=== PATIENT | female | born 1985 | race Caucasian/White ===

== ENCOUNTER 2016-07-24 14:58 | Inpatient (IN) | payer OTHER ==
--- NOTE | ~2016-07-24 | PN ---
Unit #: [id number] #: [id number] Patient: SUZIE SARAH [id number] [facility] [address] [place] [address] [id number] MR#: [id number] NAME: SUZIE SARAH. ROOM: P206 Age: 30 Sex: F Admission Date: 07/24/2016 : 1985 Attending Physician: Manjinder Briceno M.D. Admitting Physician: Manjinder Briceno M.D. Primary Care Physician: Primary Care Physician Vita PARKERCE PROGRESS NOTES DATE 07/25/2016 DISCUSSION Ms. Montano is a 30-year-old female seen on 07/25/2016. Patient interviewed. Chart reviewed. Obtained information from nursing staff. Patient was compliant, cooperative. Mood sad, dysphoric, flat affect, guarded, withdrawn, isolative, guarded. Patient's complete review of system unremarkable. MENTAL STATUS EXAMINATION General appearance, patient dressed casually. Attention span, concentration fair. Oriented in place and person. Mood and affect sad, dysphoric. Speech monotone. Thought process concrete. Patient denied any thoughts of harming others but having passive suicidal ideation, guarded, isolative, seclusive. Recent and remote memory poor. Insight and judgement poor. DIAGNOSES Major depressive disorder, recurrent, severe. ASSESSMENT/PLAN Advised to continue with current medication and therapeutic protocol. Will monitor response to medication and make further adjustment of medication. Continue with current precautions for patient's safety. Dictated by... Karime Monroy/jaky TD: 07/27/2016 16:44 JOB #: [id number] Unit #: [id number] #: [id number] Patient: SUZIE SARAH [facility] PROGRESS NOTES Page 1 of 1 X Manjinder Briceno MD PROGRESS NOTE
--- NOTE | ~2016-07-24 | DS ---
Unit #: [id number] #: [id number] Patient: SUZIE SARAH [id number] [facility] [address] [place] [address] [id number] I MR#: [id number] NAME: SUZIE SARAH. ROOM: [facility] Age: 30 Sex: F Admission Date: 07/24/2016 : 1985 Discharge Date: 07/26/2016 Attending Physician: Manjinder Briceno M.D. Primary Care Physician: Primary Care Physician No DISCHARGE SUMMARY REASON FOR ADMISSION Suicidal ideation. DIAGNOSTIC STUDIES LABORATORY RESULTS: Unremarkable. HOSPITAL COURSE The patient was admitted to inpatient unit on 07/24/2016 and discharged on 07/26/2016. The patient was treated on the inpatient unit with chemical dependency group and behavior management. The patient responded well with the above modalities of treatment and treated with a combination of trazodone and Vistaril. The patient also was able to contract for safety. Subsequently, the patient was discharged with a plan to follow up in outpatient program. DISCHARGE MEDICATIONS Trazodone 50 mg at bedtime for sleep and Vistaril 25 mg t.i.d. for anxiety. DISCHARGE DIAGNOSES Psychiatric: 1. Major depressive disorder, recurrent, severe, F33.2. 2. Cocaine use disorder, severe, F14.20. Secondary diagnosis: Deferred. Medical diagnosis: Methicillin-resistant Staphylococcus aureus infection. Stressors: Psychosocial stressors. DISCHARGE INSTRUCTIONS The patient is to follow up in outpatient clinic as per psychosocial rehabilitation counselor. CONDITION ON DISCHARGE The patient was pleasant and cooperative. Denied any psychotic symptom or any suicidal ideation. PROGNOSIS Guarded. DIET AND ACTIVITY As tolerated. Dictated by... Unit #: [id number] #: [id number] Patient: SUZIE SARAH Karime MonroyC/meel TD: 07/26/2016 18:53 JOB #: [id number] DISCHARGE SUMMARY Page 1 of 1 X Manjinder Briceno MD X DISCHARGE SUMMARY
--- NOTE | ~2016-07-24 | HP ---
Unit #: [id number] #: [id number] Patient: CHARMAINE SARAH [id number] [place] [address] [id number] I MR#: [id number] NAME: CHARMAINE SARAH. ROOM: P206 Age: 30 Sex: F Admission Date: 07/24/2016 : 1985 Attending Physician: Manjinder Briceno M.D. Admitting Physician: Manjinder Briceno M.D. Primary Care Physician: Primary Care Physician No HISTORY AND PHYSICAL HISTORY OF PRESENT ILLNESS Charmaine is a 30 year old admitted to [address] [place] [address] because of her polysubstance abuse which includes alcohol and crack cocaine. PAST MEDICAL HISTORY 1. Long history of illicit substance abuse. 2. History of alcohol abuse. 3. Morbid obesity. PAST SURGICAL HISTORY 1. x1. 2. Surgical I and D of an abscess along her lower abdomen that was positive for MRSA sometime ago. ALLERGIES Penicillin, sulfa, Rocephin, vancomycin. SOCIAL HISTORY Smokes one pack per day. Drinks at least 12 pack on a daily basis. Admits to using crack cocaine regularly. FAMILY HISTORY Medically noncontributory. REVIEW OF SYSTEMS CONSTITUTIONAL: No fever or chills. HEENT: Denies any sore throat, ear pain or runny nose. CARDIOVASCULAR: Denies chest pain, irregular heart rhythm or palpitations. CHEST: Denies shortness of breath or cough. No hemoptysis. GASTROINTESTINAL: Denies nausea, vomiting, diarrhea or chronic constipation. ENDOCRINE: Denies history of increased thirst or urination. No recent significant weight loss or gain. GENITOURINARY: Denies dysuria, frequency, or hematuria. SKIN: Denies any rashes. HEMATOLOGIC: Denies history of increased bleeding or bruising. MUSCULOSKELETAL: Denies any hot, swollen joints. No generalized muscle pain. NEUROLOGIC: Denies problems with vision or speech. No frequent, severe headaches. No numbness, tingling or weakness in any extremities. Denies loss of bladder or bowel control. CURRENT MEDICATIONS Unit #: [id number] #: [id number] Patient: CHARMAINE SARAH 1. Vistaril 25 mg t.i.d. 2. Trazodone 75 mg q.h.s. 3. Milk of Magnesia p.r.n. 4. Maalox p.r.n. 5. Tylenol p.r.n. 6. Nicotine patch 14 mg q. day. 7. Effexor XR 75 mg q. day. PHYSICAL EXAMINATION GENERAL: Alert, morbidly obese. No apparent distress. VITAL SIGNS: Blood pressure 130/88, heart rate 80, respirations 16, and temperature 98.6. WEIGHT: 230. HEIGHT: 5 feet 5 inches. SKIN: Warm and dry without rash. She has a significant laceration along her left anterior wrist. The area is sutured. There is no increased redness, swelling, heat, or pus noted. She moves all fingers. Neurovascular intact. HEENT: Normocephalic. TMs not viewed. Oral and nasal passages clear. Conjunctivae clear. PERRLA. EOMs intact. NECK: Supple without lymphadenopathy or thyromegaly. HEART: Regular rate and rhythm without murmur. LUNGS: Clear. ABDOMEN: Soft, nontender. : Not done. EXTREMITIES: No evidence of cyanosis, clubbing or edema. Moves all without focal deficit. NEUROLOGICAL: Grossly within normal limits. Cranial Nerves: II: Visual patel are intact. III, IV AND : Extraocular movements are intact. Pupils are equal, round and reactive to light. V: Facial sensation is grossly normal. VII: Facial movements and expression are normal. VIII: Auditory acuity grossly intact. IX, X: Uvula is midline. Phonation is normal. XI: Patient shrugs shoulders and turns head normally. XII: Tongue protrudes in the midline. Sensory and Motor Function: Sensory and motor sensation is grossly normal. Motor: moves all extremities well. Coordination: Gait is normal. Deep Tendon Reflexes: Intact. IMPRESSION 1. Psychiatric admission. 2. Significant self-inflicted laceration to her left wrist sustained prior to this admission. RECOMMENDATIONS PSYCHIATRIC: Per psychiatrist. MEDICAL: 1. I see no contraindication to participate in this facility's activities. 2. Keep the laceration clean with soap and water. 3. Suture removal in 7 to 10 days. MEDICAL PROGNOSIS Good. MEDICAL CONDITION Stable. Unit #: [id number] #: [id number] Patient: CHARMAINE SARAH Sebastián Dictated by... Miriam Fallon P.A.-C. for Karime Myers/bzg TD: 07/25/2016 15:02 JOB #: [id number] HISTORY AND PHYSICAL Page 1 of 1 X Miriam Fallon X HISTORY AND PHYSICAL
--- NOTE | ~2016-07-24 | PA ---
Unit #: [id number] #: [id number] Patient: SUZIE SARAH [id number] [place] [address] [id number] MR#: [id number] NAME: SUZIE SARAH. ROOM: P206 Age: 30 Sex: F Admission Date: 07/24/2016 : 1985 Date of Assessment: 07/25/2016 Attending Physician: Manjinder Briceno M.D. Admitting Physician: Manjinder Briceno M.D. Primary Care Physician: Primary Care Physician No PSYCHIATRIC ASSESSMENT INFORMANTS The patient's reliability, fair; chart reliability, good. CHIEF COMPLAINT Suicidal ideation. HISTORY OF PRESENT ILLNESS Ms. Montano is a 30-year-old female, seen on with the above-mentioned complaint. The patient reported history of regular use of substances since age 18. The patient presented with suicide attempt by slitting her wrist. The patient's wound were closed with 5 stitches. The patient reported using crack cocaine and alcohol. The patient reported she was doing it to prove a point to the boyfriend. The patient is upset with her boyfriend. The patient reported having treatment since teen years for substance abuse, depression, self-injurious behavior. The patient reports that her brother blew his brains out at age 16. The patient reports that after that she has been started using drugs. The patient also reported that she was going to court on Saturday to regain custody of her [id number] daughter. The patient needing inpatient admission at this time for psychiatric stabilization. PAST PSYCHIATRIC HISTORY Remarkable for history of previous treatment in 2016 inpatient for drug problems. FAMILY HISTORY AND SOCIAL HISTORY The patient has a poor support system. No history of any abuse. Family psychiatric illness is remarkable for history of completed suicide in brother. MEDICAL HISTORY Remarkable for MRSA. Musculoskeletal; muscle strength and tone, no atrophy or abnormal movement. Gait normal. MEDICATION HISTORY None. ALLERGIES No known drug allergies. SUBSTANCE ABUSE HISTORY The patient reported tobacco, age of onset 14; alcohol, age of onset 15; crack cocaine, age of onset 18; opioid, age of onset 29; synthetic Unit #: [id number] #: [id number] Patient: SCHEIDENBERGER,SUZIE A substances, age of onset 29; history of blackout. No history of any IV drug abuse, HIV, hepatitis, or any withdrawal symptom. REVIEW OF SYSTEMS HEENT: Eyes, clear. Ears, nose, mouth, and throat; clear. CARDIOVASCULAR: Unremarkable. RESPIRATORY: Unremarkable. GI: Unremarkable. : Unremarkable. SKIN: Unremarkable. LYMPH NODE: Unremarkable. NEUROLOGIC: Unremarkable. ENDOCRINE: Unremarkable. HEMATOLOGIC: Unremarkable. ALLERGIC/IMMUNOLOGIC: Unremarkable. MUSCULOSKELETAL: Muscle strength and tone, no atrophy or abnormal movement. Gait normal. MENTAL STATUS EXAMINATION CONSTITUTIONAL: Measurement of vital signs; temperature 97.6, pulse 78, respirations 20, blood pressure 130/89. Height 5 feet 5 inches, weight 230 pounds. GENERAL APPEARANCE: The patient dressed casually. The patient did not show any facial deformity. MUSCULOSKELETAL: Please see above. PSYCHIATRIC EXAMINATION Description of speech; regular rate, normal volume, normal articulation, coherent, spontaneous. Description of thought process, goal directed. Description of association, intact. Description of abnormal psychotic thinking; the patient denied any thoughts of harming self or others, but reported suicidal at the time of admission, self-harming behavior, substance abuse. Description of the patient's judgment; concerning everyday activity, poor. Social situation, poor. Concerning psychiatric condition, poor. Complete mental status examination; oriented in time, place, and person. Recent and remote memory, fair. Attention span and concentration, fair. Language, able to name object and repeat phrases. Fund of knowledge, fair. Vocabulary, fair. Mood and affect, sad and dysphoric. Insight and judgment, fair to poor. ASSETS AND LIABILITIES Assets; the patient is articulate, able to take care of her ADL. Liability; history of substance abuse, depression. ADMITTING DIAGNOSES Psychiatric: 1. Major depressive disorder, recurrent, severe, F33.2. 2. Cocaine use disorder, severe, F14.20. Secondary diagnosis: Deferred. Medical diagnosis: Methicillin-resistant Staphylococcus aureus. Stressors: Psychosocial stressors. PSYCHIATRIC PLAN AND TREATMENT GOAL 1. Advised to admit the patient on the inpatient unit. Provide safe, Unit #: [id number] #: [id number] Patient: SUZIE SARAH A supportive, and structured environment. 2. Ordered labs; CBC, CMP, UA, UDS, and test. 3. Precaution for self-harm, aggression. The patient to attend all the programing on the inpatient unit. Advised Vistaril 25 mg t.i.d. for anxiety, trazodone 75 mg q.h.s. for sleep. Advised to continue with Effexor 75 mg daily. We will continue to monitor. If needed, consider further adjustment of medication. Treatment goal to attain euthymic mood, gain insight into her problem, and learn coping skills. DISCHARGE PLAN Plan to stabilize the patient and consider followup in outpatient program. ESTIMATED LENGTH OF STAY 3 to 5 days. Dictated by... Manjinder Briceno M.D. CANDACE/kathleen TD: 07/25/2016 23:34 JOB #: [id number] PSYCHIATRIC ASSESSMENT Page 1 of 1 X Manjinder Briceno MD X PSYCHIATRIC ASSESSMENT
[2016-07-25 10:05] LABS: THYROID STIMULATING HORMONE 1.93 uIU/ml (0.34-5.60)
[2016-07-25 10:11] LABS: FREE THYROXIN (T4) 0.9 ng/dL (0.58-1.64)
== END 2016-07-26 16:30 | disposition home or self-care (01) | DRG 885 ==
LOC: P2S 14:58
PROVIDERS: Psychiatry & Neurology Psychiatry
DX: F33.2 Major depressive disorder, recurrent severe without psychotic features (principal); F14.20 Cocaine dependence, uncomplicated; Z88.1 Allergy status to other antibiotic agents; Z88.0 Allergy status to penicillin; Z88.2 Allergy status to sulfonamides; F17.210 Nicotine dependence, cigarettes, uncomplicated; S61.512D Laceration without foreign body of left wrist, subsequent encounter; Y33.XXXD Other specified events, undetermined intent, subsequent encounter; A49.02 Methicillin resistant Staphylococcus aureus infection, unspecified site
CPT/HCPCS: 84439; 84443